=== PATIENT | female | born 1985 | race Caucasian/White ===

== ENCOUNTER 2017-05-02 18:25 | Emergency (ER) | payer OTHER ==
[2017-05-02 18:37] VITALS: TEMP 98.4
--- NOTE | 2017-05-02 18:41 | CPEKG ---
Heart Rate: 77 RR Interval: 779 P-R Interval: 100 QRSD Interval: 78 QT Interval: 392 QTC Interval: 444 P [place]: -5 QRS [place]: 75 T Wave [place]: 62 EKG Severity - BORDERLINE ECG - EKG Impression: SINUS RHYTHM EKG Impression: SHORT [place] INTERVAL, ACCELERATED AV CONDUCTION Electronically Signed By: Jose Juan Arteaga 02-May-2017 20:42:55
[2017-05-02 18:47] LABS: % IMMATURE GRANULYOCYTES 0.3 % (0.0-1.1); ABSOLUTE IMMATURE GRANULOCYTES 0.02 10^3/uL (0.00-0.10); ADD DIFF? NO; ADD MORPH? NO; ADD SCAN? NO; ATYPICAL LYMPHOCYTE FLAG 0 (0-99); FRAGMENT RBC FLAG 0 (0-99); HEMATOCRIT 41.7 % (38.0-47.0); HEMOGLOBIN 14.4 g/dL (12.6-16.3); LEFT SHIFT FLG 0 (0-99); LIPEMIA HEMOLYSIS FLAG 90 (0-99); MEAN CELL HEMOGLOBIN 31.2 pg (27.9-34.1); MEAN CELL HEMOGLOBIN CONCENTR. 34.5 g/dL (32.4-36.7); MEAN CELL VOLUME 90.5 fL (81.5-99.8); MEAN PLATELET VOLUME 11.4 fL (8.7-11.7); PLATELET CLUMPS FLAG 0 (0-99); PLATELET COUNT 162 10^3/uL (150-400); RED BLOOD CELL COUNT 4.61 10^6/uL (4.18-5.33); RED CELL DISTRIBUTION WIDTH 11.9 % (11.5-15.2)
[2017-05-02 19:01] LABS: ANION GAP 10 mEq/L (8-16); CARBON DIOXIDE 25 mEq/l (22-31); CHLORIDE 103 mEq/L (97-110); CREATININE 0.8 mg/dL (0.6-1.0); GLOMERULAR FILTRATION RATE > 60; GLUCOSE 84 mg/dL (70-100); POTASSIUM 3.7 mEq/L (3.5-5.2); SODIUM 138 mEq/L (134-144)
--- NOTE | 2017-05-02 19:10 | EDPHY ---
H & P Stated Complaint: cardiac palpitations for 1 week intermittently, denies pain, + SOB Time Seen by Provider: 05/02/17 18:39 HPI/ROS: This patient complains of heart palpitations. She explains that for quite some time she has had fleeting episodes of heart palpitations typically once a month but is frequently as once a week described as a feeling of skipped beat following by brief fluttering that typically resolves within seconds. She sometimes reports brief dyspnea "it takes her breath away". As well as fleeting lightheadedness. This week however she reports daily episodes of heart palpitations sometimes in quick succession. The total duration of recurrent heart palpitations and succession is been up to 3 minutes at a time. She reports similar accompanying symptoms of dyspnea and lightheadedness when the episodes occur. They have occurred while she is at rest in the seated position. She has not had any episodes during exercise. She notes no exacerbating or alleviating factors. She reports more stress this week due to traveling with her mother to [place] but denies any other recent changes. ROS: Constitutional no significant fatigue or fevers. HEENT no recent URI symptoms. No sore throat or other complaints Pulmonary: No dyspnea. No pleuritic pain. No coughing. Neuro: No headache, numbness or tingling or other complaints GI: No nausea vomiting or other complaints. No recent diarrhea. : Last menstrual. Normal timing 2 weeks ago. . No vaginal discharge or dysuria. Integumentary: No skin rash. Endocrine: No polyuria polydipsia or other symptoms Complete ROS is otherwise negative Source: Patient Exam Limitations: No limitations - Personal History LMP (Females 10-55): 15-21 Days Ago - Medical/Surgical History Other PMH: denies - Family History Significant Family History: Other ( her mother had an SD in her 40s and her father had an SD in his 50s. No history of dysrhythmia or syncope) - Social History Smoking Status: Never smoked Alcohol Use: Rarely Drug Use: None - Physical Exam Exam: General Appearance: Alert, no distress. Eyes: Pupils equal and round no pallor or injection. ENT, Mouth: Mucous membranes moist. Respiratory: There are no retractions, lungs are clear to auscultation. Cardiovascular: Regular rate and rhythm.No murmur gallop or rub is appreciated. She has no leg swelling or tenderness. Gastrointestinal: Abdomen is soft and nontender, no masses, bowel sounds normal. Neurological: GCS 15 with no focal deficits appreciated. Skin: Warm and dry, no rashes. Musculoskeletal: Neck is supple nontender. Extremities are symmetrical, full range of motion. Psychiatric: Mood and affect normal DIFFERENTIAL DIAGNOSIS: After history and physical exam differential diagnosis was considered for PSVT, PACs, PVCs, anxiety, thyroid disease, metabolic abnormalities, structural heart disease, valvular disease Constitutional: Initial Vital Signs Temperature (C) 36.9 C 05/02/17 18:35 Heart Rate 81 05/02/17 18:35 Respiratory Rate 18 05/02/17 18:35 Blood Pressure 137/64 H 05/02/17 18:35 O2 Sat (%) 97 05/02/17 18:35 O2 Delivery Mode Room Air Allergies/Adverse Reactions: No Known Allergies Allergy (Unverified 05/02/17 19:25) Home Medications: Medication Instructions Recorded Metoprolol Tartrate 12.5 - 25 mg PO BID #30 tablet 05/02/17 Medical Decision Making - Diagnostics EKG Interpretation: 12 lead EKG indication palpitations evaluate for conduction abnormalities or other 12 lead EKG performed at 6:40 p.m. reveals sinus rhythm at 77 new Intervals are notable for short MO interval of 100. other intervals are normal. [place]: Normal Overall assessment sinus rhythm with short MO-accelerated AV conduction. ED Course/Re-evaluation: the patient remained stable on the monitor without ectopy while here. I counseled her regarding short MO interval and potential PSVT. Encouraged her to decrease her caffeine intake to 1 cup of coffee day. I spoke with Dr. Kirk Flores personal care aide for [facility] who suggests low dose metoprolol for this patient with follow up with [facility] for further workup. Discussion: Patient was short MO interval with potential brief PSVT is without syncope or other concerning findings. After workup here, no evidence of metabolic disarray, thyroid disease, anemia or other contributing factors. I appreciate no murmur on her exam today or other concerning findings. No clinical evidence of DVT or PE. Patient will start metoprolol with close follow-up with [facility]. I also instructed her in Valsalva maneuver should she have any ongoing heart palpitations despite the treatment plan - Data Points Laboratory Results: Laboratory Results 05/02/17 16:42 05/02/17 16:42 05/02/17 05/02/17 05/02/17 16:42 16:42 16:42 WBC 7.40 10^3/uL 10^3/uL (3.80-9.50) RBC 4.61 10^6/uL 10^6/uL (4.18-5.33) Hgb 14.4 g/dL g/dL (12.6-16.3) Hct 41.7 % % (38.0-47.0) MCV 90.5 fL fL (81.5-99.8) MCH 31.2 pg pg (27.9-34.1) MCHC 34.5 g/dL g/dL (32.4-36.7) RDW 11.9 % % (11.5-15.2) Plt Count 162 10^3/uL 10^3/uL (150-400) MPV 11.4 fL fL (8.7-11.7) Neut % (Auto) 65.7 % % (39.3-74.2) Lymph % (Auto) 24.5 % % (15.0-45.0) [place] % (Auto) 7.2 % % (4.5-13.0) Eos % (Auto) 1.8 % % (0.6-7.6) Baso % (Auto) 0.5 % % (0.3-1.7) Nucleat RBC Rel Count 0.0 % % (0.0-0.2) Absolute Neuts (auto) 4.87 10^3/uL 10^3/uL (1.70-6.50) Absolute Lymphs (auto) 1.81 10^3/uL 10^3/uL (1.00-3.00) Absolute Monos (auto) 0.53 10^3/uL 10^3/uL (0.30-0.80) Absolute Eos (auto) 0.13 10^3/uL 10^3/uL (0.03-0.40) Absolute Basos (auto) 0.04 10^3/uL 10^3/uL (0.02-0.10) Absolute Nucleated RBC 0.00 10^3/uL 10^3/uL (0-0.01) Immature Gran % 0.3 % % (0.0-1.1) Immature Gran # 0.02 10^3/uL 10^3/uL (0.00-0.10) Sodium 138 mEq/L mEq/L (134-144) Potassium 3.7 mEq/L mEq/L (3.5-5.2) Chloride 103 mEq/L mEq/L (97-110) Carbon Dioxide 25 mEq/l mEq/l (22-31) Anion Gap 10 mEq/L mEq/L (8-16) BUN 15 mg/dL mg/dL (7-23) Creatinine 0.8 mg/dL mg/dL (0.6-1.0) Estimated GFR > 60 Glucose 84 mg/dL mg/dL (70-100) Calcium 9.0 mg/dL mg/dL (8.5-10.4) Troponin I < 0.012 ng/mL ng/mL (0-0.034) TSH 3.190 uIU/mL uIU/mL Cancelled (0.465-4.680) Departure - Departure Disposition: Home, Routine, Self-Care Clinical Impression: Heart palpitations, Shortened MO interval Condition: Good Instructions: Palpitations (ED) Additional Instructions: Diagnosis: Heart palpitations 2. Shortened P-R interval on EKG Plan: Drink plenty fluids Try to cut back the coffee to 1 cup of coffee a day metoprolol beta-latonya medication Call [facility] to arrange follow-up appointment for further workup and evaluation return for any significant worsening despite the treatment plan Referrals: NONE *PRIMARY CARE P,. [Primary Care Provider] - As per Instructions Dieter Flores MD [Medical Doctor] - As per Instructions Prescriptions: Metoprolol Tartrate 12.5 - 25 mg PO BID #30 tablet
[2017-05-02 19:13] LABS: TROPONIN I < 0.012 ng/mL (0-0.034)
[2017-05-02 19:46] VITALS: BP 115/68; PULSE 92; RESP 21; O2SAT 99
== END 2017-05-02 19:40 | disposition home or self-care (01) ==
LOC: CED 18:25
DX: R00.2 Palpitations (principal); R94.39 Abnormal result of other cardiovascular function study
CPT/HCPCS: 80048-PO; 84443-PO; 84484-PO; 85025-PO